=== PATIENT | female | born 1995 | race Caucasian/White ===

== ENCOUNTER → 2018-06-27 22:51 | Observation (INO) ==
[2018-06-27 21:33] LABS: Bilirubin,Urine Negative (Negative); Blood,Urine Negative (Negative); Clarity,Urine Cloudy (Clear); Color,Urine Yellow (Yellow); Glucose,Urine (UA) Normal (Normal); Ketones,Urine Negative (Negative); Leukocyte Esterase,Urine Moderate (Negative); Nitrite,Urine Negative (Negative); Protein,Urine Negative (Neg-Trace); Specific Gravity,Urine 1.016 (1.010-1.025); Urobilinogen,Urine Normal (Normal)
[2018-06-27 21:35] LABS: Bacteria,Urine Moderate per hpf (None-Few); Hyaline Casts,Urine None Seen per lpf (None-Few); RBC,Urine 0-3 per hpf (0-3); Squamous Epithelial Cell,Urine Many per lpf (None-Few)
[2018-06-27 21:43] LABS: Amphetamine Screen,Urine Negative ng/mL (Cutoff=1000); Barbiturate Screen,Urine Negative ng/mL (Cutoff=200); Benzodiazepines Screen,Urine Negative ng/mL (Cutoff=200); Cannabinoid Screen,Urine Negative ng/mL (Cutoff = 50); Cocaine Screen,Urine Negative ng/mL (Cutoff= 300); Opiate Screen,Urine Negative ng/mL (Cutoff=300); Phencyclidine Screen,Urine Negative ng/mL (Cutoff=25)
--- NOTE | 2018-06-27 22:50 | OB/GYN Progress Note ---
Date of Encounter: 06/27/18 Time of Encounter: 22:47 - Assessment and Plan (1) 25 weeks gestation of Current Visit: Yes Status: Acute (2) Dehydration during Current Visit: Yes Status: Acute Given 1 L bolus. Patient states feels better. Discussed with patient importance of staying hydrated and maintaining adequate nutrition in . Discharged home with instructions to rest hydrate and eat. Given labor and when to return to triage precautions. Patient verbalizes understanding Subjective - Subjective Interval history: 25+2 weeks gestation presents to triage with complaints of dizziness and nearly passing out at work. Patient states she was working and she became very dizzy and lightheaded started to lose her vision and folic she was going to pass out so she sat down. 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 Only had a half a bottle of water to drink today, and has not eaten yet today other than a couple small bites of snacks. Reports good movement, denies vaginal bleeding leaking of fluid or contractions. Antepartum ROS: movement normal, no loss of fluid, no vaginal bleeding, no contractions Objective - Vital Signs Vital Signs: Intake and Output 06/27/18 06/27/18 06/27/18 07:59 15:59 23:59 Other: Weight 85.786 kg Patient Weight 06/27/18 23:59 Weight 85.786 kg - Exam FHR: auscultation normal FHR comments: Baseline 145 Abdomen: Present: soft, gravid - Labs Labs: Abnormal lab results Urine Clarity Cloudy (Clear) A 06/27/18 21:20 Ur Leukocyte Esterase Moderate (Negative) H 06/27/18 21:20 Urine Microscopic WBC 5-15 per hpf (0-3) H 06/27/18 21:20 Ur Squamous Epith Cells Many per lpf (None-Few) H 06/27/18 21:20 Urine Bacteria Moderate per hpf (None-Few) H 06/27/18 21:20 Ur Culture Indicated? NO. (NO) A 06/27/18 21:20
[~2018-06-27 22:51] MED LIST: Ringers Solution, Lactated 1,000 ML IVC ONE; Ringers Solution, Lactated 1,000 ML ONE
== END | disposition home or self-care (01) ==
LOC: 1NENULAB
PROVIDERS: ADMIT Advanced Practice Midwife; ATTEND Advanced Practice Midwife

== ENCOUNTER 2018-08-11 07:43 | Observation (INO) ==
[2018-08-11 02:19] LABS: Bilirubin,Urine Negative (Negative); Blood,Urine Large (Negative); Clarity,Urine Turbid (Clear); Color,Urine Yellow (Yellow); Glucose,Urine (UA) Normal (Normal); Ketones,Urine Negative (Negative); Leukocyte Esterase,Urine Moderate (Negative); Nitrite,Urine Negative (Negative); Protein,Urine 30 mg/dL (Neg-Trace); Specific Gravity,Urine 1.007 (1.010-1.025); Urobilinogen,Urine Normal (Normal)
[2018-08-11 02:21] LABS: Bacteria,Urine Moderate per hpf (None-Few); Hyaline Casts,Urine None Seen per lpf (None-Few); RBC,Urine TNTC per hpf (0-3); Squamous Epithelial Cell,Urine Many per lpf (None-Few)
[2018-08-11 02:29] LABS: Amphetamine Screen,Urine Negative ng/mL (Cutoff=1000); Barbiturate Screen,Urine Negative ng/mL (Cutoff=200); Benzodiazepines Screen,Urine Negative ng/mL (Cutoff=200); Cannabinoid Screen,Urine Negative ng/mL (Cutoff = 50); Cocaine Screen,Urine Negative ng/mL (Cutoff= 300); Opiate Screen,Urine Negative ng/mL (Cutoff=300); Phencyclidine Screen,Urine Negative ng/mL (Cutoff=25)
--- NOTE | 2018-08-11 07:05 | OB/GYN History & Physical ---
Date of Encounter: 08/11/18 Time of Encounter: 07:01 Assessment and Plan (1) 31 weeks gestation of Current visit: Yes Status: Acute (2) Hematuria Current visit: Yes Status: Acute Hematuria in the presence of acute left flank pain. Concern for kidney stone. Pt does have a history of pyelonephritis. UA with moderate leukocytes. Will treat with rocephin. Await retroperitoneal ultrasound at 0800 this am. POC discussed with Dr. Morales Qualifiers: Hematuria type: unspecified type Qualified Code(s): R31.9 - Hematuria, unspecified (3) Flank pain Current visit: Yes Status: Acute History of Present Illness Chief complaint: left flank pain HPI: Ms. Michael is a 23 year old female presenting at 31w5d with c/o waking up early this am with dull pain in her left side and back. She reports there is a constant dull pain with intermittent sharp pains. She denies fever, chills, nausea, cramping, leaking, bleeding, dysuria or any other new complaints. Good FM. Her mother has a history of kidney stones. She has had one bladder infection and one kidney infection in this . Past Med Surg Social Fam HX - Past Medical History Medical history: no medical history Psychiatric history: anxiety, depression - Past Surgical History Surgical History: no surgical history - Social History Smoking Status: Never smoker Smokeless Tobacco Status: No Alcohol use: none Drug use: none - Family History Mother Living Status: Still Living Hx Family Cardiac Disorders: Yes (HTN) Hx Family Respiratory Disorders: Yes (COPD) Hx Family Cancer: No Hx Family GI Disorders: No Hx Family Genitourinary Disorders: No Hx Family Endocrine Disorder: No Hx Family Musculoskeletal Disorders: No Hx Family Neuromuscular Disorders: No Hx Family Neurologic Disorders: No Hx Family HEENT Disorders: No Hx Family Autoimmune Disorders: No Hx Family Reproductive Disorders: No Hx Family Psychosocial Disorders: No Hx Family Medical Disorders: No Obstetrical History - Pregnancies : 1 Medications and Allergies #103/Iron Fumarate/FA [ Tablet] 1 each PO DAILY 04/20/18 [History] Allergy/AdvReac Type Severity Reaction Status Date / Time No Known Allergies Allergy Verified 04/20/18 16:37 Review of System OB - Constitutional Constitutional ROS IM: no anorexia, no chills - Cardiovascular Cardiovascular: no chest pain, no dyspnea - Respiratory Respiratory: no dyspnea - Gastrointestinal Gastrointestinal: no abdominal pain, no change in bowel habits, no nausea - Genitourinary Genitourinary: flank pain, urinary frequency (not new), no dysuria, no urinary u rgency, no vaginal discharge Exam - Constitutional Constitutional: well developed, well nourished, mild distress - HEENT HEENT: Mucus Membranes Moist - Lungs Respiratory exam: CTAB - Cardiovascular Cardiovascular exam: RRR - Abdomen Abdomen: Present: gravid, non tender - Extremities Extremities exam: normal inspection - Comments Comments: + left CVAT, tenderness to palpation of muscles in lower back and glutes Results Abnormal lab results Turbid (Clear) A 08/11/18 02:14 Ur Specific [place] 1.007 (1.010-1.025) L 08/11/18 02:14 30 mg/dL (Neg-Trace) H 08/11/18 02:14 Large (Negative) H 08/11/18 02:14 Ur Leukocyte Esterase Moderate (Negative) H 08/11/18 02:14 TNTC per hpf (0-3) H 08/11/18 02:14 5-15 per hpf (0-3) H 08/11/18 02:14 Ur Squamous Epith Cells Many per lpf (None-Few) H 08/11/18 02:14 Moderate per hpf (None-Few) H 08/11/18 02:14 Ur Culture Indicated? YES (NO) A 08/11/18 02:14 All other labs normal. - VTE Reasons for not Prescribing Prophylaxis: Treatment not Indicated - Low risk for VTE
[~2018-08-11 07:43] MED LIST changes: +*HR* Nalbuphine 10 MG/ML AMPUL IV PRN; +Ringers Solution, Lactated 1,000 ML IVC SCH; -Ringers Solution, Lactated 1,000 ML ONE; +cefTRIAXone 1,000 MG in Water for inj. (sterile) 20 ML 10 ML IVP ONE
--- NOTE | 2018-08-11 10:50 | OB/GYN Progress Note ---
Date of Encounter: 08/11/18 Time of Encounter: 10:47 - Assessment and Plan (1) Pyelonephritis affecting in third trimester Current Visit: Yes Status: Acute Ultrasound shows no indication of kidney stones or obstruction. Discharged home on Keflex 3 times a day for 5 days, and labor and when to return to triage precautions. Patient verbalizes understanding. Plan of care discussed with Dr. Cuellar Plan of care discussed with Dr. Berry Retroperitoneum Ultrasound 08/11/18 08:00 IMPRESSION: No evidence of obstructive uropathy. D/ / 08/11/2018 08:35:29 Collin Gunter MD / Janet Kelley Interpreting Provider: Collin Gunter MD (2) 31 weeks gestation of Current Visit: Yes Status: Acute Subjective - Subjective Interval history: Patient states pain has improved from earlier. Voiding without difficulties. Reports good movement, denies vaginal bleeding or leaking of fluid. Antepartum ROS: movement normal, no loss of fluid, no vaginal bleeding, no contractions Objective - Vital Signs Vital Signs: Intake and Output 08/10/18 08/11/18 08/11/18 23:59 07:59 15:59 Other: Weight 87.407 kg Patient Weight 08/11/18 23:59 Weight 87.407 kg - Exam FHR: auscultation normal FHR comments: Baseline 140 Abdomen: Present: soft, gravid - Labs Labs: Abnormal lab results Turbid (Clear) A 08/11/18 02:14 Ur Specific [place] 1.007 (1.010-1.025) L 08/11/18 02:14 30 mg/dL (Neg-Trace) H 08/11/18 02:14 Large (Negative) H 08/11/18 02:14 Ur Leukocyte Esterase Moderate (Negative) H 08/11/18 02:14 TNTC per hpf (0-3) H 08/11/18 02:14 5-15 per hpf (0-3) H 08/11/18 02:14 Ur Squamous Epith Cells Many per lpf (None-Few) H 08/11/18 02:14 Moderate per hpf (None-Few) H 08/11/18 02:14 Ur Culture Indicated? YES (NO) A 08/11/18 02:14
== END 2018-08-11 10:55 | disposition home or self-care (01) ==
LOC: 1NENULAB
PROVIDERS: ADMIT Registered Nurse; ATTEND Registered Nurse

== ENCOUNTER → 2018-09-15 14:45 | Observation (INO) ==
[2018-09-15 12:42] LABS: Bilirubin,Urine Negative (Negative); Blood,Urine Negative (Negative); Clarity,Urine Cloudy (Clear); Color,Urine Yellow (Yellow); Glucose,Urine (UA) Normal (Normal); Ketones,Urine Negative (Negative); Leukocyte Esterase,Urine Moderate (Negative); Nitrite,Urine Negative (Negative); PH,Urine 7.5 pH Units (5.0-8.0); Protein,Urine Negative (Neg-Trace); Specific Gravity,Urine 1.025 (1.010-1.025); Urobilinogen,Urine Normal (Normal)
[2018-09-15 12:44] LABS: Bacteria,Urine Few per hpf (None-Few); Hyaline Casts,Urine None Seen per lpf (None-Few); RBC,Urine 0-3 per hpf (0-3); Squamous Epithelial Cell,Urine Many per lpf (None-Few)
[2018-09-15 12:54] LABS: Amphetamine Screen,Urine Negative ng/mL (Cutoff=1000); Barbiturate Screen,Urine Negative ng/mL (Cutoff=200); Benzodiazepines Screen,Urine Negative ng/mL (Cutoff=200); Cannabinoid Screen,Urine Negative ng/mL (Cutoff = 50); Cocaine Screen,Urine Negative ng/mL (Cutoff= 300); Opiate Screen,Urine Negative ng/mL (Cutoff=300); Phencyclidine Screen,Urine Negative ng/mL (Cutoff=25)
--- NOTE | 2018-09-15 14:38 | Discharge Summary ---
Date of Encounter: 09/15/18 Time of Encounter: 14:36 - Discharge Diagnosis (1) 36 weeks gestation of Priority: Primary Status: Acute Comments: Admit to observation for contractions. (2) NST (non-stress test) reactive Priority: Secondary Status: Acute Comments: FHR 130 bpm, +15 x 15 accelerations, no decelerations. (3) uterine contractions in third trimester, antepartum Priority: Secondary Status: Acute Comments: Irregular contractions noted. No cervical change during her stay here. - Discharge Medications Prescriptions: No Action #103/Iron Fumarate/FA [ Tablet] 1 each PO DAILY Ferrous Sulfate [Iron] 325 mg PO DAILY Home Medications: #103/Iron Fumarate/FA [ Tablet] 1 each PO DAILY 04/20/18 [History] Ferrous Sulfate [Iron] 325 mg PO DAILY 09/15/18 [History] Allergies/Adverse Reactions: Allergy/AdvReac Type Severity Reaction Status Date / Time No Known Allergies Allergy Verified 09/15/18 12:18 Data Procedures and tests throughout hospitalization: Laboratory Tests 09/15/18 09/15/18 12:29 12:29 Urine Color Yellow Urine Clarity Cloudy A Urine pH 7.5 Ur Specific [place] 1.025 Urine Protein Negative Urine Glucose (UA) Normal Urine Ketones Negative Urine Blood Negative Urine Nitrite Negative Urine Bilirubin Negative Urine Urobilinogen Normal Ur Leukocyte Esterase Moderate H Urine Microscopic RBC 0-3 Urine Microscopic WBC 5-15 H Ur Squamous Epith Cells Many H Urine Bacteria Few Hyaline Casts None Seen Ur Culture Indicated? YES A Urine Opiates Screen Negative Ur Buprenorphine Scrn Negative Ur Barbiturates Screen Negative Ur Phencyclidine Scrn Negative Ur Amphetamines Screen Negative U Benzodiazepines Scrn Negative Urine Cocaine Screen Negative U Marijuana (THC) Screen Negative Ur Drug Screen Interp See Below Labs on day of discharge: Labs from last 24 hours 09/15/18 09/15/18 12:29 12:29 Urine Color Yellow Urine Clarity Cloudy A Urine pH 7.5 Ur Specific [place] 1.025 Urine Protein Negative Urine Glucose (UA) Normal Urine Ketones Negative Urine Blood Negative Urine Nitrite Negative Urine Bilirubin Negative Urine Urobilinogen Normal Ur Leukocyte Esterase Moderate H Urine Microscopic RBC 0-3 Urine Microscopic WBC 5-15 H Ur Squamous Epith Cells Many H Urine Bacteria Few Hyaline Casts None Seen Ur Culture Indicated? YES A Urine Opiates Screen Negative Ur Buprenorphine Scrn Negative Ur Barbiturates Screen Negative Ur Phencyclidine Scrn Negative Ur Amphetamines Screen Negative U Benzodiazepines Scrn Negative Urine Cocaine Screen Negative U Marijuana (THC) Screen Negative Ur Drug Screen Interp See Below Date of admission: 09/15/18 11:57 Primary care physician: PCP SID Discharging clinician: Eloisa Guy Anticipated date of discharge: 09/15/18 - Patient Status Disposition: Home, Self-Care Condition: Good Functional capacity at discharge: independent ambulation Overall status at discharge: patient is progressing back to baseline - Discharge Instructions Follow Up With: NONE,PCP [Primary Care Provider] - Liane Morales MD [Partnered Physician] - - Diet and Activity Activity: resume usual activities as tolerated Diet: regular diet Hospital Course [employer]IC Hospital course: Patient is 36 weeks 5 days who presents with complaints of possible contractions. She reports positive movement, denies vaginal bleeding and fluid leakage. Her cervix was unchanged in 2 hours. She is to follow-up with her OB care provider as scheduled next week. Time Attestation: Total time spent providing and/or coordinating discharge services: Time Spent: Less than 30 minutes Exam - Constitutional General appearance IM: A&O X 3, pleasant, no acute distress, answers questions appropriately - Respiratory Respiratory exam: Present: CTAB. Absent: respiratory distress - Cardiovascular Cardiovascular exam IM: Present: RRR, +S1, +S2. Absent: irregular rhythm - GI/Abdominal GI/Abdominal exam IM: normal bowel sounds, soft Incision: normal, dry, intact - Rectal Rectal exam: deferred - External exam: normal external exam Uterine Tone: Firm Uterus Position: At Umbilicus, Midline - Extremities Exam Extremities exam IM: Present: full ROM, normal capillary refill, normal inspection. Absent: calf tenderness - Neurological Exam Neurological exam: alert, normal gait, oriented X3 - VTE Reasons for not Prescribing Prophylaxis: Treatment not Indicated - Low risk for VTE
== END | disposition home or self-care (01) ==
LOC: 1NENULAB
PROVIDERS: ADMIT Registered Nurse; ATTEND Registered Nurse

== ENCOUNTER 2018-09-20 04:29 | Observation (INO) ==
[2018-09-20 00:40] LABS: Amphetamine Screen,Urine Negative ng/mL (Cutoff=1000); Barbiturate Screen,Urine Negative ng/mL (Cutoff=200); Benzodiazepines Screen,Urine Negative ng/mL (Cutoff=200); Cannabinoid Screen,Urine Negative ng/mL (Cutoff = 50); Cocaine Screen,Urine Negative ng/mL (Cutoff= 300); Opiate Screen,Urine Negative ng/mL (Cutoff=300); Phencyclidine Screen,Urine Negative ng/mL (Cutoff=25)
[~2018-09-20 04:29] MED LIST changes: +*HR* Nalbuphine 10 MG/ML AMPUL IV ONE; -*HR* Nalbuphine 10 MG/ML AMPUL IV PRN; +Lidocaine -MPF 1% 2 ML VIAL ONE; -Ringers Solution, Lactated 1,000 ML IVC ONE; -Ringers Solution, Lactated 1,000 ML IVC SCH; -cefTRIAXone 1,000 MG in Water for inj. (sterile) 20 ML 10 ML IVP ONE
--- NOTE | 2018-09-26 22:21 | Discharge Summary ---
Date of Encounter: 09/19/18 Time of Encounter: 19:00 - Discharge Diagnosis (1) 37 weeks gestation of Priority: Primary Status: Acute Comments: Admit to observation for labor evaluation. (2) False labor after 37 completed weeks of gestation Priority: Secondary Status: Acute Comments: Patient was monitored throughout the night with no cervical change despite contractions. (3) NST (non-stress test) reactive Priority: Secondary Status: Acute Comments: Category 1 heart rate tracing. Positive accelerations no decelerations - Discharge Medications Prescriptions: No Action #103/Iron Fumarate/FA [ Tablet] 1 each PO DAILY Breast Pump [BREAST PUMP] 1 each .ROUTE AD #1 each Docusate [Colace] 100 mg PO BID PRN #30 capsule PRN Reason: Constipation Benzocaine/Menthol [place] [Dermoplast [place]] 1 appl TP QID PRN aerosol PRN Reason: See Comments Ferrous Sulfate 325 mg PO BIDWM #180 tablet Ibuprofen [Motrin] 600 mg PO Q6HR PRN #30 tablet PRN Reason: Cramping Acetaminophen [Tylenol] 650 mg PO Q6HR PRN tablet PRN Reason: Mild Pain Home Medications: #103/Iron Fumarate/FA [ Tablet] 1 each PO DAILY 04/20/18 [History] Acetaminophen [Tylenol] 650 mg PO Q6HR PRN tablet 09/23/18 [Rx] Benzocaine/Menthol [place] [Dermoplast [place]] 1 appl TP QID PRN aerosol 09/23/18 [Rx] Breast Pump [BREAST PUMP] 1 each .ROUTE AD #1 each 09/23/18 [Rx] Docusate [Colace] 100 mg PO BID PRN #30 capsule 09/23/18 [Rx] Ferrous Sulfate 325 mg PO BIDWM #180 tablet 09/23/18 [Rx] Ibuprofen [Motrin] 600 mg PO Q6HR PRN #30 tablet 09/23/18 [Rx] Allergies/Adverse Reactions: Allergy/AdvReac Type Severity Reaction Status Date / Time No Known Allergies Allergy Verified 09/24/18 19:39 Data Procedures and tests throughout hospitalization: Laboratory Tests 09/19/18 23:30 Urine Opiates Screen Negative Ur Buprenorphine Scrn Negative Ur Barbiturates Screen Negative Ur Phencyclidine Scrn Negative Ur Amphetamines Screen Negative U Benzodiazepines Scrn Negative Urine Cocaine Screen Negative U Marijuana (THC) Screen Negative Ur Drug Screen Interp See Below Date of admission: 09/19/18 23:04 Primary care physician: PCP NONE Discharging clinician: Eloisa Guy Anticipated date of discharge: 09/20/18 - Patient Status Disposition: Home, Self-Care Condition: Good Functional capacity at discharge: independent ambulation Overall status at discharge: patient is progressing back to baseline - Discharge Instructions Follow Up With: NONE,PCP [Primary Care Provider] - Additional Instructions: LABOR AND DELIVERY DISCHARGE INSTRUCTIONS Signs and Symptoms to be Reported to your Doctor Immediately: * Sudden gush, continuous or intermittent lead of fluid from vagina (note the time of gush and color of fluid) * Onset of bright red vaginal bleeding with or without pain (if you had a vaginal exam during this visit you may notice some dark red spotting. This is normal.) * Contractions that are 5 minutes apart (from the beginning of one contraction to the beginning of the next) and last 45-60 seonds; contractions that you can no longer walk, talk or laugh through. * A change in the baby's activity. This could be an increase or decrease in activity. * Severe headache which does not go away with tylenol. * Sudden swelling in the face, hands, arms and/or legs. * Upper abdominal pain - sometimes associated with heartburn or nausea and is not relieved by Maalox, Mylanta or Tums. * Kick Counts __ One hour after a meal, lay down on one side in a quiet place. Count the number of time the baby moves during an hour. If less than 6 movements, notify your physician Diet: *Force fluids, 8 to 10 tall glasses of fluid per day - may include popsicles and jello *Limit caffeine - this includes chocolate, coffee, tea, any soft drink containing such as all savana, [place] Yellow and Mountain Dew Follow up with as scheduled. - Diet and Activity Activity: resume usual activities as tolerated Diet: regular diet Hospital Course [employer]INATING [employer]PER[employer] Hospital course: Patient arrived with complaints of painful uterine contractions. On arrival she reports positive movement, denies vaginal bleeding and fluid leakage. She was found to be having regular uterine contractions but no cervical change was made over a period of several hours. Patient was given a dose of pain medication to help ease her contraction pain. She was monitored throughout the night without further cervical change noted and therefore was discharged home in stable condition. She is to follow-up with her OB care provider for routine care. She is to return for further signs and symptoms of labor. Time Attestation: Total time spent providing and/or coordinating discharge services: Time Spent: Less than 30 minutes Exam - Constitutional General appearance IM: A&O X 3, pleasant, no acute distress, answers questions appropriately - Respiratory Respiratory exam: Absent: respiratory distress - Cardiovascular Cardiovascular exam IM: Present: RRR, +S1, +S2. Absent: irregular rhythm - GI/Abdominal GI/Abdominal exam IM: normal bowel sounds, soft - Rectal Rectal exam: deferred - External exam: normal external exam - Extremities Exam Extremities exam IM: Present: full ROM, normal inspection. Absent: calf tenderness - Neurological Exam Neurological exam: alert, normal gait, oriented X3 - VTE Reasons for not Prescribing Prophylaxis: Treatment not Indicated - Low risk for VTE
== END 2018-09-20 07:45 | disposition home or self-care (01) ==
LOC: 1NENULAB
PROVIDERS: ADMIT Registered Nurse; ATTEND Registered Nurse

== ENCOUNTER → 2018-09-21 06:49 | Observation (INO) ==
[2018-09-20] MEDS: Ringers Solution, Lactated 500 ML IVC SCH (20:54)
[2018-09-21] MEDS: Ringers Solution, Lactated 500 ML IVC SCH (00:32)
[~2018-09-21 06:49] MED LIST changes: -*HR* Nalbuphine 10 MG/ML AMPUL IV ONE; +*HR* Nalbuphine 10 MG/ML AMPUL IV PRN; -Lidocaine -MPF 1% 2 ML VIAL ONE; +Morphine Sulfate 2 MG/ML SYRINGE IVP ONE; +Morphine Sulfate 2 MG/ML SYRINGE SQ ONE; +Ondansetron 4 MG/2 ML VIAL IVP ONE; +Ringers Solution, Lactated 1,000 ML ONE; +Ringers Solution, Lactated 500 ML IVC ONE
== END | disposition home or self-care (01) ==
LOC: 1NENULAB
PROVIDERS: ADMIT Registered Nurse; ATTEND Registered Nurse

== ENCOUNTER → 2018-09-21 16:15 | Observation (INO) | END | disposition home or self-care (01) | LOC: 1NENULAB | PROVIDERS: ADMIT Advanced Practice Midwife; ATTEND Advanced Practice Midwife ==

== ENCOUNTER 2018-09-21 18:04 | Inpatient (IN) ==
[~2018-09-21 18:04] MED LIST changes: -*HR* Nalbuphine 10 MG/ML AMPUL IV PRN; +*HR* Nalbuphine 10 MG/ML AMPUL IVP PRN; +Famotidine 20 MG/2 ML VIAL IVP PRN; +Metoclopramide 10 MG/2 ML VIAL IVP PRN; -Morphine Sulfate 2 MG/ML SYRINGE IVP ONE; -Morphine Sulfate 2 MG/ML SYRINGE SQ ONE; +Naloxone 0.4 MG/ML INJ IVP PRN; -Ondansetron 4 MG/2 ML VIAL IVP ONE; +Ondansetron 4 MG/2 ML VIAL IVP PRN; +Ringers Solution, Lactated 1,000 ML IVC SCH; -Ringers Solution, Lactated 1,000 ML ONE; -Ringers Solution, Lactated 500 ML IVC ONE
[2018-09-21 18:17] LABS: Basophils % 0.2 %; Eosinophils # 0.1 K/mcL (0.0-0.6); Eosinophils % 0.9 %; Hematocrit 37.6 % (35.3-44.9); Hemoglobin 12.8 g/dL (11.5-15.4); Immature Granulocytes % 0.8 % (0-4); Lymphocytes # 1.5 K/mcL (0.6-4.6); Lymphocytes % 10.5 %; Mean Corpuscular Volume 88.1 fL (83.0-100.0); Mean Platelet Volume 8.9 fL (9.4-12.4); Monocytes # 1.1 K/mcL (0.0-1.3); Monocytes % 7.7 %; Neutrophils # 11.7 K/mcL (1.6-8.9); Platelet Count 194 K/mcL (140-400); Red Blood Count 4.27 M/mcL (3.82-4.97); Segmented Neutrophils % 79.9 %; White Blood Count 14.7 K/mcL (4.3-11.1)
[2018-09-21] MEDS ORDERED: Epidural Premix (fent/bupiv) 110 ML EP ONE (18:20)
[2018-09-21] MEDS ORDERED: Epidural Premix (fent/bupiv) 110 ML EP SCH (18:30)
[2018-09-21] MEDS ORDERED: Oxytocin 20 units/ LR 1000 mL 20 UNIT/1,000 ML BAG IVC ONE (19:26)
[2018-09-21] MEDS ORDERED: Acetaminophen 325 MG TABLET PO ONE (21:09)
[2018-09-22] MEDS ORDERED: Oxytocin 20 units/ LR 1000 mL 20 UNIT/1,000 ML BAG IVC ONE (00:51)
[2018-09-22] MEDS ORDERED: Oxytocin 20 units/ LR 1000 mL 20 UNIT/1,000 ML BAG IVC SCH (03:02)
[2018-09-22] MEDS ORDERED: Benzocaine/Menthol 56 GM AEROSOL SPRAY TP PRN (03:02)
[2018-09-22] MEDS ORDERED: *HR* HYDROcodone/Acet 5/325 mg TABLET PO PRN (03:02)
[2018-09-22] MEDS ORDERED: Acetaminophen 325 MG TABLET PO PRN (03:02)
[2018-09-22] MEDS: Ibuprofen 600 MG TABLET PO PRN ×2 (05:02→18:07)
[2018-09-22 08:08] LABS: Basophils % 0.1 %; Eosinophils # 0.1 K/mcL (0.0-0.6); Eosinophils % 0.9 %; Hematocrit 29.4 % (35.3-44.9); Immature Granulocytes % 1.3 % (0-4); Lymphocytes # 2.1 K/mcL (0.6-4.6); Lymphocytes % 15.4 %; Mean Corpuscular Hemoglobin 29.8 pg (28.0-33.3); Mean Corpuscular Volume 90.5 fL (83.0-100.0); Mean Platelet Volume 9.5 fL (9.4-12.4); Monocytes % 7.1 %; Neutrophils # 10.1 K/mcL (1.6-8.9); Platelet Count 169 K/mcL (140-400); Red Blood Count 3.25 M/mcL (3.82-4.97); Segmented Neutrophils % 75.2 %; White Blood Count 13.5 K/mcL (4.3-11.1)
[2018-09-22 08:14] LABS: Hemoglobin 9.7 g/dL (11.5-15.4)
[2018-09-22] MEDS: Prenatal Vit/FA 1 EACH TABLET PO SCH (09:09)
[2018-09-23] MEDS: Prenatal Vit/FA 1 EACH TABLET PO SCH (08:22)
[2018-09-23] MEDS: Ibuprofen 600 MG TABLET PO PRN (08:23)
[2018-09-23 09:01] VITALS: BP 106/74
[2018-09-23] MEDS ORDERED: Measles/Mumps/Rubella Vacc 0.5 ML VIAL SQ ONE (10:20)
== END 2018-09-23 14:26 | disposition home or self-care (01) | DRG 807 ==
LOC: 1NENULAB → 1NENUOBS 09-22 01:45
PROVIDERS: ADMIT Advanced Practice Midwife; ATTEND Advanced Practice Midwife